=== PATIENT | female | born 1970 | race Caucasian/White ===

== ENCOUNTER 2020-06-29 16:18 | Emergency (ER) | payer SELFPAY ==
[2020-06-29] MEDS ORDERED: SODIUM CHLORIDE 0.9% (FLUSH) 10 ML SYG IV PRN (16:38)
[2020-06-29 16:45] VITALS: BP 125/72; TEMP 98.9; O2SAT 98
--- NOTE | 2020-06-29 16:48 | ED.PDOC ---
History of Present Illness - General Chief Complaint: Abdominal Pain Stated Complaint: Abd pain and bloating Time Seen by Provider: 06/29/20 16:30 Information Source: patient Exam Limitations: no limitations - History of Present Illness Abdominal Pain Onset Location: generalized abdomen Pain Radiation: no radiation Quality: moderate Timing/Duration: other - 2 days Improving Factors: nothing Worsening Factors: nothing Associated Symptoms: denies symptoms Review of Systems - Review of Systems Constitutional: Denies: chills, fever EENTM: Denies: blurred vision, tearing Respiratory: Denies: cough, orthopnea, short of breath Cardiology: Denies: chest pain, syncope Gastrointestinal/Abdominal: States: abdominal pain. Denies: constipation, diarrhea, nausea Skin: Denies: change in color Neurological: Denies: anxiety, depressed, pre-existing deficit, seizure Endocrine: Denies: flushing, intolerance to cold, intolerance to heat, unexplained weight gain, unexplained weight loss Past Medical History (General) - Patient Medical History Hx Stroke: No Hx of COPD: No Hx Cardiac Disorders: No Hx Congestive Heart Failure: No Hx Hypertension: No Hx Diabetes: No Hx Cancer: No Surgical History: no surgical history, Hysterectomy - Vaccination History Hx Influenza Vaccination: Yes - Social History Hx Tobacco Use: No Hx Alcohol Use: No Hx Substance Use: No Hx Substance Use Treatment: No Hx Depression: No - Female History Patient is a Female of Child Bearing Age (10 -59 yrs old): Yes Patient : - Possibly Family Medical History - Family History Mother Family History: Unknown Physical Exam - Physical Exam General Appearance: Alert Eyes, Ears, Nose, Throat Exam: PERRL/EOMI, normal ENT inspection, TMs normal, pharynx normal Neck: non-tender, full range of motion, supple, normal inspection Respiratory: chest non-tender, lungs clear, normal breath sounds Cardiovascular/Chest: normal peripheral pulses, regular rate, rhythm, no edema, no gallop, no JVD Gastrointestinal/Abdominal: non tender, soft, no organomegaly, no pulsatile mass, tenderness Back Exam: normal inspection, no CVA tenderness, no vertebral tenderness Extremity: normal range of motion, non-tender, normal inspection, no pedal edema, no calf tenderness 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 Abdominal pain work-up is initiated. 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 She denies any other work-up.Tried to explain to the patient why all the lab and imaging was ordered she states that she knows what she wants and she would be [id number] and she does not want any of this test. Discharge the patient home patient verbalized understanding to return precautions and follow- up instructions Departure - Departure Clinical Impression: Abdominal pain, Hypokalemia Disposition: Discharge to Home or Self Care Departure Forms: ED Discharge - Pt. Copy, Patient Portal Self Enrollment Instructions: DI for Abdominal Pain-Adult Diet: full liquid diet Home Medications: Ambulatory Orders NK 06/29/20 Additional Instructions: As discussed in the emergency department today denied work-up.. Return to the emergency department as needed. Follow-up with primary care physician 1 to 2 days
[2020-06-29] MEDS ORDERED: POTASSIUM CHLORIDE 20 MEQ TAB PO ONE (17:48)
== END 2020-06-29 18:05 | disposition home or self-care (01) ==
LOC: ER 16:18
DX: R10.84 Generalized abdominal pain (principal); E87.6 Hypokalemia